=== PATIENT | female | born 1945 | race Caucasian/White ===

== ENCOUNTER 2016-11-20 14:22 | Day surgery (SDC) | payer MEDICARE, OTHER ==
[2016-11-16 13:42] LABS: HEMOGLOBIN 16.7 g/dL (12.0-15.5); HGB HCT DIFFERENCE 0.1; MEAN CORPUSCULAR HEMOGLOBIN 31.9 pg (27.0-33.4); MEAN CORPUSCULAR HGB CONC 33.5 g/dL (32.0-36.0); MEAN CORPUSCULAR VOLUME 95 fl (80-97); RED BLOOD COUNT 5.24 10^6/uL (3.72-5.28); RED CELL DISTRIBUTION WIDTH 14.3 % (11.5-14.0); WHITE BLOOD COUNT 5.2 10^3/uL (4.0-10.5)
[2016-11-16 13:52] LABS: ANION GAP 12 (5-19); BLOOD UREA NITROGEN 16 mg/dL (7-20); CALCIUM 10.3 mg/dL (8.4-10.2); CARBON DIOXIDE 30 mmol/L (22-30); CHLORIDE 104 mmol/L (98-107); CREATININE RESULT 1.04 mg/dL (0.52-1.25); GLUCOSE 81 mg/dL (75-110); POTASSIUM 4.7 mmol/L (3.6-5.0); SODIUM 145.7 mmol/L (137-145)
--- NOTE | 2016-11-17 17:41 | EKG REPORT ---
SEVERITY:- ABNORMAL ECG - SINUS RHYTHM LEFT VENTRICULAR HYPERTROPHY : Confirmed by: Janice Ashley MD 17-Nov-2016 17:40:25
[~2016-11-20 14:22] MED LIST: LACTATED RINGERS 1000 ML IV PRN; LIDOCAINE 0.5% INJ-PF (5 MG/ML) 50 ML SDV SUBCUT PRN; LIDOCAINE 2% INJ-PF (20 MG/ML) 10 ML AMPUL ONE
[2016-11-20] MEDS ORDERED: PROPOFOL INJ 200 MG/20 ML VIAL IV ONE (15:06)
[2016-11-20] MEDS ORDERED: MIDAZOLAM 2 MG/2 ML INJ ONE (15:07)
[2016-11-20] MEDS ORDERED: FENTANYL CITRATE INJ/PF 100 MCG/2 ML AMPUL IV PRN ×3 (16:15)
[2016-11-20] MEDS ORDERED: PROMETHAZINE HCL INJ 25 MG/1 ML VIAL IV PRN ×2 (16:15)
[2016-11-20] MEDS ORDERED: MEPERIDINE HCL/PF INJ 25 MG/1 ML DISP.SYRIN IV PRN (16:15)
[2016-11-20] MEDS ORDERED: ONDANSETRON HCL INJ/PF 4 MG/2 ML SDV IV PRN (16:15)
[2016-11-20] MEDS ORDERED: MORPHINE SULFATE 10 MG/ML INJ IV PRN (16:15)
[2016-11-20] MEDS ORDERED: DIPHENHYDRAMINE HCL 50 MG/ML VIAL IV PRN (16:15)
[2016-11-20] MEDS ORDERED: OXYCODONE-ACETAMINOPHEN 5-325 MG TABLET PO PRN ×2 (16:15)
--- NOTE | 2016-11-20 17:38 | OPERATIVE REPORT E ---
Operative Report NAME: PHILIP XAVIER : 1945 AGE: 71Y DATE OF SURGERY: 11/20/2016 ROOM: PREOPERATIVE DIAGNOSES: 1. History of colon carcinoma in situ. 2. Reflux disease. POSTOPERATIVE DIAGNOSES: 1. Small gastric fundi varix. 2. Anastomotic and descending colon polyp. 3. Internal hemorrhoids. SURGERY: 1. Esophagogastroduodenoscopy with biopsy. 2. Colonoscopy with polypectomy. SURGEON: ELISE YARBROUGH M.D. MEDICATION: As per Anesthesia. TISSUE REMOVED OR ALTERED: Antral biopsy and colon polyps. PROCEDURE: After informed consent obtained from patient, conscious sedation was achieved. The upper endoscope was inserted into the esophagus and advanced into the stomach. The duodenum was normal. The gastric antrum and body were normal. There was a short gastric varix noted in the gastric cardia. There was no evidence of bleeding. The esophagus was normal. The colonoscope was inserted and advanced to the anastomotic site situated in the mid to distal transverse colon. There was a 3 mm polyp noted at the anastomotic site, and this was removed with the hot snare. Another 4 mm polyp was noted in the tattooed area in the proximal descending colon. This was also removed. The rest of the colon was normal except for hemorrhoids. She tolerated the procedure well. PLAN: We will review her previous ultrasound and CAT scan to evaluate the liver and spleen. DICTATING PHYSICIAN: ELISE YARBROUGH M.D. [id number] PHY#: [id number] ID: [id number] JOB#: [id number] ACCT: [id number] cc:ELISE YARBROUGH M.D. >
[2016-11-20 18:25] VITALS: BP 155/65
--- NOTE | 2016-11-20 18:37 | PDOC DISCHARGE SUMMARY ---
Discharge Summary (SDC) - Discharge Final Diagnosis: colon polyp, gastric varix Condition: Stable Forms: ASU Anesthesia D/C Instruction, Discharge POC-Surgical Service Referrals: ELISE YARBROUGH MD [ACTIVE STAFF] - 12/21/16 (Keep previously scheduled follow up appointment.) Discharge Diet: As Tolerated Respiratory Treatments at Home: Deep Breathing/Coughing Discharge Activity: Activity As Tolerated, Balance Activity w/Rest, No Driving Home Care Assistance: None Needed Report the Following to Your Physician Immediately: Shortness of Breath, Nausea , Vomiting, Increase in Pain, Fever over 101 Degrees, Unusual Bleeding, IV Site Infection Signs
== END 2016-11-20 18:35 | disposition home or self-care (01) ==
LOC: OROUT 14:22
PROVIDERS: ATTEND Internal Medicine Gastroenterology
PROC: 0DB68ZX Excision of Stomach, Via Natural or Artificial Opening Endoscopic, Diagnostic (ICD-10-PCS; principal; 2016-11-20 15:30)
PROC: 0DBM8ZX Excision of Descending Colon, Via Natural or Artificial Opening Endoscopic, Diagnostic (ICD-10-PCS; 2016-11-20 15:30)
DX: Z12.11 Encounter for screening for malignant neoplasm of colon (principal); Z85.038 Personal history of other malignant neoplasm of large intestine; Z86.010 Personal history of colon polyps; D12.4 Benign neoplasm of descending colon; I86.4 Gastric varices; K64.8 Other hemorrhoids; R12 Heartburn; K31.9 Disease of stomach and duodenum, unspecified; K52.9 Noninfective gastroenteritis and colitis, unspecified; E78.00 Pure hypercholesterolemia, unspecified; I10 Essential (primary) hypertension; Z79.82 Long term (current) use of aspirin; Z79.899 Other long term (current) drug therapy
CPT/HCPCS: 43239; 45385; 93005; 36415 ×2; 84132; 85027; 80048; 88342 ×2; 88305 ×2; 93010; J2250; J2704; J3490; 740

== ENCOUNTER 2016-11-27 03:52 | Observation (INO) | payer MEDICARE, OTHER ==
[2016-11-27] MEDS ORDERED: NORMAL SALINE 1000 ML 1,000 ML IV ONE (04:38)
--- NOTE | 2016-11-27 04:41 | ER Document Report ---
ED GI Bleed / Rectal Pain - General Information source: Patient, Relative - daughter TRAVEL OUTSIDE OF THE [place] IN LAST 30 DAYS: No - HPI Patient complains to provider of: Bright red bld from rect. Onset: This morning - 0200 Timing/Duration: Sudden, Persistent Quality of pain: Cramping Emesis description: Bright red blood Rectal bleeding: Bloody diarrhea <ELIAN ORNELAS - Last Filed: 11/27/16 05:45> <MARIANO KINGSLEY - Last Filed: 11/27/16 06:09> - General Chief Complaint: Rectal Bleeding Stated Complaint: RECTAL BLEEDING/NAUSEA Time Seen by Provider: 11/27/16 04:28 Notes: Patient is a 71-year-old female, with past medical history including colon cancer and right hemicolectomy, who presents to the emergency department this morning after waking up to bloody diarrhea at approximately 0200 this morning. Patient describes the blood as bright red. Patient also complains of abdominal cramping. Patient's daughter reports that the patient had a colonoscopy with polyp removal at the anastomosis as well as above the anastomosis seven days ago. Patient's primary care is managed by the [facility]. (ELIAN ORNELAS) - Related Data Allergies/Adverse Reactions: Penicillins Allergy (Severe, Verified 11/20/16 14:55) Angioneurotic Edema Past Medical History - General Information source: Patient, [facility], [facility] Records - Social History Smoking Status: Unknown if Ever Smoked Family History: Reviewed & Not Pertinent Patient has suicidal ideation: No Patient has homicidal ideation: No - Medical History Medical History: Other - Polycythemia - Past Medical History Cardiac Medical History: Reports: Hx Coronary Artery Disease, Hx Heart Attack, Hx Hypertension GI Medical History: Reports: Hx Colonoscopy Musculoskeltal Medical History: Reports Hx Arthritis Past Surgical History: Reports: Hx Bowel Surgery - Hemicolectomy, Hx Cardiac Surgery - Triple Bypass, Hx Cholecystectomy, Other - Right mastoidectomy, right craniotomy - Immunizations Hx Diphtheria, Pertussis, Tetanus Vaccination: Yes Hx Pneumococcal Vaccination: 03/31/16 <ELIAN ORNELAS - Last Filed: 11/27/16 05:45> Review of Systems - Review of Systems Constitutional: No symptoms reported EENT: No symptoms reported Cardiovascular: No symptoms reported Respiratory: No symptoms reported Gastrointestinal: See HPI, Abdominal pain - cramping, Diarrhea, Rectal bleeding Genitourinary: No symptoms reported Female Genitourinary: No symptoms reported Musculoskeletal: No symptoms reported Skin: No symptoms reported Hematologic/Lymphatic: No symptoms reported Neurological/Psychological: No symptoms reported -: Yes All other systems reviewed and negative <ELIAN ORNELAS - Last Filed: 11/27/16 05:45> Physical Exam - Vital signs Interpretation: Hypotensive - General General appearance: Alert - HEENT Head: Normocephalic, Atraumatic Eyes: Normal Pupils: PERRL - Respiratory Respiratory status: No respiratory distress Chest status: Nontender Breath sounds: Normal - Cardiovascular Rhythm: Regular - Abdominal Inspection: Normal Distension: No distension Bowel sounds: Normal Tenderness: Nontender - Rectal Tenderness: No Stool: Heme positive, Bloody Hemorrhoids: Internal - Back Back: Normal, Nontender - Extremities General upper extremity: Normal inspection, Nontender General lower extremity: Normal inspection, Nontender - Neurological Neuro grossly intact: Yes Cognition: Normal Orientation: AAOx4 [place] Coma Scale Eye Opening: Spontaneous [place] Coma Scale Verbal: Oriented [place] Coma Scale Motor: Obeys Commands [place] Coma Scale Total: 15 Speech: Normal - Psychological Associated symptoms: Normal affect, Normal mood - Skin Skin Temperature: Warm Skin Moisture: Dry Skin Color: Normal <ELIAN ORNELAS - Last Filed: 11/27/16 05:45> <MARIANO KINGSLEY - Last Filed: 11/27/16 06:09> - Vital signs Vitals: Temp Pulse Resp BP Pulse Ox 97.4 F 94 16 95/64 L 96 11/27/16 04:02 11/27/16 04:02 11/27/16 04:02 11/27/16 04:02 11/27/16 04:02 - Rectal Notes: Hemorrhoids that are not bleeding. There was no clotting maroon colored blood pouring out of her anus. (ELIAN ORNELAS) Course - Laboratory Result Diagrams: 11/27/16 04:50 11/27/16 04:50 <ELIAN ORNELAS - Last Filed: 11/27/16 05:45> - Laboratory Result Diagrams: 11/27/16 04:50 11/27/16 04:50 - Diagnostic Test Radiology reviewed: Image reviewed, Reports reviewed - CT scan does not show any free air or any other acute abnormality - EKG Interpretation by Nj EKG shows normal: Sinus rhythm, [place], Intervals, QRS Complexes, ST-T Waves Rate: Normal - 76 Rhythm: NSR Voltage: Consistant with LVH When compared to previous EKG there are: No significant change - Consults Dr. Templeton Time consulted: 05:30 Consulted provider: will come to ER - Dr. Templeton requests to have the patient admitted to the hospitalist service and he will take to endoscopy for colonoscopy this morning. Dr. Barron Time consulted: 06:00 Consulted provider: will come to ER <MARIANO KINGSLEY - Last Filed: 11/27/16 06:09> - Re-evaluation Re-evalutation: 11/27/16 05:50 Patient's initial hemoglobin was 14.8, however she has a history of polycythemia and her hemoglobin was 16.7 only 11 days ago. (MARIANO KINGSLEY) - Vital Signs Vital signs: Temp Pulse Resp BP Pulse Ox 97.4 F 94 20 114/62 97 11/27/16 04:02 11/27/16 04:02 11/27/16 05:16 11/27/16 05:16 11/27/16 05:16 - Laboratory Laboratory results interpreted by me: 11/27/16 11/27/16 04:50 04:50 RDW 14.5 H Sodium 146.2 H Chloride 110 H BUN 24 H Est GFR ( Amer) 55 L Est GFR (Non-Af Amer) 45 L Glucose 123 H Creatine Kinase 164 H Total Protein 6.1 L Albumin 3.2 L Discharge <ELIAN ORNELAS - Last Filed: 11/27/16 05:45> - Discharge Admitting Provider: Hospitalist Unit Admitted: IMCU <MARIANO KINGSLEY - Last Filed: 11/27/16 06:09> - Discharge Clinical Impression: Polycythemia GI bleeding Qualifiers: GI bleed type/associated pathology: melena Qualified Code(s): K92.1 - Melena Hypotension Qualifiers: Hypotension type: other hypotension type Qualified Code(s): I95.89 - Other hypotension Condition: Stable Disposition: ADMITTED INPATIENT Scribe Attestation: 11/27/16 06:09 I personally performed the services described in the documentation, reviewed and edited the documentation which was dictated to the scribe in my presence, and it accurately records my words and actions. (MARIANO KINGSLEY) Scribe Documentation - Scribe Written by Francis:: Francis Borrego, 11/27/2016 0437 acting as scribe for :: Edi <ELIAN ORNELAS - Last Filed: 11/27/16 05:45>
[2016-11-27 05:18] LABS: ABSOLUTE BASOPHILS # (AUTO) 0.1 10^3/uL (0.0-0.2); ABSOLUTE EOSINOPHILS # (AUTO) 0.2 10^3/uL (0.0-0.6); ABSOLUTE MONOCYTES (AUTO) 0.6 10^3/uL (0.1-1.4); BASOPHILS % (AUTO) 1.4 % (0-2); HEMATOCRIT 43.7 % (36.0-47.0); HEMOGLOBIN 14.8 g/dL (12.0-15.5); HGB HCT DIFFERENCE 0.7; LYMPHOCYTES % (AUTO) 28.7 % (13-45); MEAN CORPUSCULAR HEMOGLOBIN 32.7 pg (27.0-33.4); MEAN CORPUSCULAR HGB CONC 33.8 g/dL (32.0-36.0); MEAN CORPUSCULAR VOLUME 97 fl (80-97); RED BLOOD COUNT 4.51 10^6/uL (3.72-5.28); RED CELL DISTRIBUTION WIDTH 14.5 % (11.5-14.0); SEGMENTED NEUTROPHILS % (AUTO) 57.9 % (42-78)
[2016-11-27 05:26] LABS: PROTHROMBIN TIME 14.4 SEC (11.4-15.4)
[2016-11-27 05:36] LABS: ALANINE AMINOTRANSFERASE 47 U/L (9-52); ALBUMIN 3.2 g/dL (3.5-5.0); ALKALINE PHOSPHATASE 103 U/L (38-126); ANION GAP 10 (5-19); ASPARTATE AMINO TRANSFERASE 34 U/L (14-36); BILIRUBIN,DIRECT 0.4 mg/dL (0.0-0.4); BILIRUBIN,TOTAL 0.6 mg/dL (0.2-1.3); BLOOD UREA NITROGEN 24 mg/dL (7-20); CALCIUM 9.6 mg/dL (8.4-10.2); CARBON DIOXIDE 26 mmol/L (22-30); CHLORIDE 110 mmol/L (98-107); CREATINE KINASE 164 U/L (30-135); CREATININE RESULT 1.17 mg/dL (0.52-1.25); GLUCOSE 123 mg/dL (75-110); POTASSIUM 4.8 mmol/L (3.6-5.0); SODIUM 146.2 mmol/L (137-145); TOTAL PROTEIN 6.1 g/dL (6.3-8.2)
[2016-11-27 05:46] LABS: CREATINE KINASE MB 1.65 ng/mL (<4.55)
[2016-11-27 05:50] LABS: TROPONIN I < 0.012 ng/mL
[2016-11-27] MEDS ORDERED: NALOXONE HCL INJ/PF 0.4 MG/1 ML SDV ONE (05:50)
[2016-11-27] MEDS ORDERED: MIDAZOLAM 2 MG/2 ML INJ ONE (05:51)
[2016-11-27] MEDS ORDERED: FENTANYL CITRATE INJ/PF 100 MCG/2 ML AMPUL ONE (05:51)
[2016-11-27] MEDS ORDERED: FLUMAZENIL INJ 0.5 MG/5 ML VIAL IV ONE (05:51)
[2016-11-27] MEDS ORDERED: GLUCAGON,HUMAN RECOMB 1 MG INJ ONE (05:51)
[2016-11-27] MEDS ORDERED: EPINEPHRINE INJ 1 MG/10 ML DISP.SYRIN ONE (05:51)
--- NOTE | 2016-11-27 06:15 | RADIOLOGY REPORT (SQ) ---
EXAM DESCRIPTION: CT ABD/PELVIS NO ORAL OR IV COMPLETED DATE/TIME: 11/27/2016 5:59 am REASON FOR STUDY: bloody diarrhea, abd pain post polypectomy COMPARISON: 7..12. TECHNIQUE: CT scan of the abdomen and pelvis performed without intravenous or oral contrast. Images reviewed with lung, soft tissue, and bone windows. Reconstructed coronal and sagittal MPR images revi ewed. All images stored on PACS. All CT scanners at this facility use dose modulation, iterative reconstruction, and/or weight based d osing when appropriate to reduce radiation dose to as low as reasonably achievable (ALARA). [facility]: Dose Right [facility]: CareDose [facility]: Dose Right [facility]: Teradose 4D [facility]: WizIQ RADIATION DOSE: 17.13mGy. LIMITATIONS: None. FINDINGS: LOWER CHEST: No significant findings. No nodules or infiltrates. Coronary arterial calcif ication. Sternotomy. NON-CONTRASTED LIVER, SPLEEN, ADRENALS: Moderate nodular contour or of the liver surface may indicate cirrhosis. Old granulomatous disease of the spleen. Evaluation limited by lack of IV contrast. No identified significant masses. PANCREAS: No masses. No peripancreatic inflammatory changes. GALLBLADDER: Surgically absent. RIGHT KIDNEY AND URETER: No suspicious masses. Assessment limited by lack of IV contrast. No signif icant calcifications. No hydronephrosis or hydroureter. LEFT KIDNEY AND URETER: No suspicious masses. Assessment limited by lack of IV contrast. No signifi cant calcifications. No hydronephrosis or hydroureter. 4.7 cm likely benign cysts without suspicio us interval change compared with prior exam, December 2011. AORTA AND RETROPERITONEUM: No aneurysm. No retroperitoneal masses or adenopathy. BOWEL AND PERITONEAL CAVITY: No obvious masses or inflammatory changes. No free fluid. Suture materi al of the transverse colon. APPENDIX: No evidence of appendicitis. PELVIS, BLADDER, AND ABDOMINAL WALL:No abnormal masses. No free fluid. Bladder normal. Small fat onl y herniation of the supraumbilical midline an upper midline at the level of the liver. BONES: Moderate disc desiccation. Moderate lower thoracic diffuse idiopathic skeletal hyperostosis. Moderate vacuum disc desiccation between the L3 and L5 levels. [id number]-[id number] bilateral L5 forami nal stenosis. OTHER: No other significant finding. IMPRESSION: No acute findings. TECHNICAL DOCUMENTATION: JOB ID: [id number] Quality ID # [id number]: Final reports with documentation of one or more dose reduction techniques (e.g., Au tomated exposure control, adjustment of the mA and/or kV according to patient size, use of iterative reconstruction technique) 2010 [employer]- All Rights Reserved
[2016-11-27] MEDS ORDERED: IPRATROPIUM/ALBUTEROL 0.5-2.5 MG/3 ML AMPUL NEB PRN (06:34)
[2016-11-27] MEDS ORDERED: ONDANSETRON HCL INJ/PF 4 MG/2 ML SDV IV PRN (06:34)
[2016-11-27] MEDS ORDERED: DEXTROSE 40% GEL 15 GM TUBE PO PRN ×2 (06:34)
[2016-11-27] MEDS ORDERED: DEXTROSE 50%-WATER 25 GM/50 ML DISP.SYRIN IV PRN ×2 (06:34)
[2016-11-27] MEDS ORDERED: GLUCAGON,HUMAN RECOMB 1 MG INJ SUBCUT PRN (06:34)
[2016-11-27] MEDS ORDERED: NORMAL SALINE 1000 ML 1,000 ML IV SCH (06:45)
[2016-11-27 07:17] LABS: ABSOLUTE BASOPHILS # (AUTO) 0.1 10^3/uL (0.0-0.2); ABSOLUTE EOSINOPHILS # (AUTO) 0.1 10^3/uL (0.0-0.6); ABSOLUTE LYMPHOCYTES (AUTO) 1.3 10^3/uL (0.5-4.7); ABSOLUTE MONOCYTES (AUTO) 0.6 10^3/uL (0.1-1.4); ABSOLUTE NEUT (AUTO) 5.2 10^3/uL (1.7-8.2); BASOPHILS % (AUTO) 0.8 % (0-2); EOSINOPHILS % (AUTO) 1.4 % (0-6); HEMATOCRIT 37.3 % (36.0-47.0); HGB HCT DIFFERENCE 0.5; LYMPHOCYTES % (AUTO) 18.3 % (13-45); MEAN CORPUSCULAR HEMOGLOBIN 32.7 pg (27.0-33.4); MEAN CORPUSCULAR HGB CONC 33.9 g/dL (32.0-36.0); MEAN CORPUSCULAR VOLUME 97 fl (80-97); MONOCYTES % (AUTO) 7.9 % (3-13); RED BLOOD COUNT 3.86 10^6/uL (3.72-5.28); SEGMENTED NEUTROPHILS % (AUTO) 71.6 % (42-78); WHITE BLOOD COUNT 7.2 10^3/uL (4.0-10.5)
--- NOTE | 2016-11-27 07:19 | PDOC H&P ---
History of Present Illness Admission Date/PCP: 11/27/16 06:34 Patient complains of: Blood per rectum History of Present Illness: PHILIP XAVIER is a 71 year old female with a past medical history of hereditary angioedema, coronary artery disease, polycythemia, remote colon cancer with hemicolectomy and reanastomosis. 7 days ago had endoscopy and several polyps removed from the anastomosis site, last night patient had several large bloody bowel movements prompting her ER evaluation. She is found to have a significant drop in her hemoglobin from 16.7-14.8, and unremarkable CT of the abdomen and pelvis and referred to the hospitalist for admission. Patient denies previous episode and otherwise feels well. Past Medical History Cardiac Medical History: Reports: Coronary Artery Disease, Myocardial Infarction , Hypertension Pulmonary Medical History: Denies: Asthma, Bronchitis, Chronic Obstructive Pulmonary Disease (COPD), Pneumonia Neurological Medical History: Denies: Seizures Musculoskeltal Medical History: Reports: Arthritis Hematology: Denies: Anemia Past Surgical History Past Surgical History: Reports: Cholecystectomy, Other - Right mastoidectomy, right craniotomy Social History Information Source: Patient, Emergency Med Personnel, [facility] Records Lives with: Family Smoking Status: Unknown if Ever Smoked Drugs: None - Advance Directive Resuscitation Status: Full Code Family History Family History: Reviewed & Not Pertinent Parental Family History Reviewed: No Children Family History Reviewed: No Sibling(s) Family History Reviewed.: No Medication/Allergy Allergies/Adverse Reactions: Penicillins Allergy (Severe, Verified 11/20/16 14:55) Angioneurotic Edema Review of Systems Constitutional: ABSENT: chills, fever(s), headache(s), weight gain, weight loss Eyes: ABSENT: visual disturbances Ears: ABSENT: hearing changes Cardiovascular: ABSENT: chest pain, dyspnea on exertion, edema, orthropnea, palpitations Respiratory: ABSENT: cough, hemoptysis Gastrointestinal: ABSENT: abdominal pain, constipation, diarrhea, hematemesis, hematochezia, nausea, vomiting Genitourinary: ABSENT: dysuria, hematuria Musculoskeletal: ABSENT: joint swelling Integumentary: ABSENT: rash, wounds Neurological: ABSENT: abnormal gait, abnormal speech, confusion, dizziness, focal weakness, syncope Psychiatric: ABSENT: anxiety, depression, homidical ideation, suicidal ideation Endocrine: ABSENT: cold intolerance, heat intolerance, polydipsia, polyuria Hematologic/Lymphatic: ABSENT: easy bleeding, easy bruising Physical Exam Vital Signs: Temp Pulse Resp BP Pulse Ox 97.4 F 94 21 H 114/65 99 11/27/16 04:02 11/27/16 04:02 11/27/16 06:48 11/27/16 06:48 11/27/16 06:48 General appearance: PRESENT: no acute distress, well-developed, well-nourished Head exam: PRESENT: atraumatic, normocephalic Eye exam: PRESENT: conjunctiva pink, EOMI, PERRLA. ABSENT: scleral icterus Ear exam: PRESENT: normal external ear exam Mouth exam: PRESENT: moist, tongue midline Neck exam: ABSENT: carotid bruit, JVD, lymphadenopathy, thyromegaly Respiratory exam: PRESENT: clear to auscultation nikita. ABSENT: rales, rhonchi, wheezes Cardiovascular exam: PRESENT: RRR. ABSENT: diastolic murmur, rubs, systolic murmur Pulses: PRESENT: normal dorsalis pedis pul Vascular exam: PRESENT: normal capillary refill GI/Abdominal exam: PRESENT: normal bowel sounds, soft, tenderness - Mild left lower quadrant pain. ABSENT: distended, guarding, mass, organolmegaly, rebound Rectal exam: PRESENT: deferred Extremities exam: PRESENT: full ROM. ABSENT: calf tenderness, clubbing, pedal edema Neurological exam: PRESENT: alert, awake, oriented to person, oriented to place , oriented to time, oriented to situation, CN II-XII grossly intact. ABSENT: motor sensory deficit Psychiatric exam: PRESENT: appropriate affect, normal mood. ABSENT: homicidal ideation, suicidal ideation Skin exam: PRESENT: dry, intact, warm. ABSENT: cyanosis, rash Results Impressions: Abdomen/Pelvis CT 11/27/16 05:39 IMPRESSION: No acute findings. Assessment & Plan - Diagnosis (1) GI bleeding Qualifiers: GI bleed type/associated pathology: melena Qualified Code(s): K92.1 - Melena Is this a current diagnosis for this admission?: YesPlan: New problem likely secondary to bleeding at polypectomy site. Admission to the [facility], 2 units of packed red blood cells are typed and screened, serial CBC and gastroenterology consultation with Dr. Templeton obtained for colonoscopy. (2) Hypotension Qualifiers: Hypotension type: other hypotension type Qualified Code(s): I95.89 - Other hypotension Is this a current diagnosis for this admission?: YesPlan: IV fluid challenge reevaluation and consideration of pressors (3) Polycythemia Is this a current diagnosis for this admission?: YesPlan: Patient's baseline hemoglobin of 16 serial CBCs ordered (4) Hereditary angioedema Is this a current diagnosis for this admission?: YesPlan: Continue danazol - Time Time Spent: 30 to 50 Minutes - Inpatient Certification Medical Necessity: Need Close Monitoring Due to Risk of Patient Decompensation
--- NOTE | 2016-11-27 07:28 | CONSULTATION REPORT E ---
Consultation Report NAME: PHILIP XAVIER : 1945 AGE: 71Y DATE: 11/27/2016 ED70 A TO: ELISE YARBROUGH M.D. FROM: JEFF GUERRA M.D. Requesting Physician Consultation requested by hospitalist. HISTORY: A 71-year-old patient who was admitted through the emergency room with acute lower GI bleeding. She started bleeding about 3-4 hours prior to presentation. She has had 4-5 episodes so far of bright red blood per rectum. She does get some abdominal cramps prior to a bowel movement. She had a colonoscopy on 11/20/2016 where two small polyps were removed from the anastomotic sites and proximal descending colon. The polyps were 3 and 4 mm in size, but they were removed with the hot snare. She has resumed taking her baby aspirin, but has not been taking any other NSAIDs. On admission, her hemoglobin was 14.8. It was 16.7 on 11/16/2016. She has a history of polycythemia vera. Her INR was normal. PAST MEDICAL HISTORY: 1. Right-sided colon cancer about 12 years ago. 2. Hypercholesterolemia. 3. Hypertension. 4. Coronary artery disease. 5. Reflux disease. 6. Angioedema. 7. Polycythemia. PAST SURGICAL HISTORY: 1. Recent colonoscopy and also in 2012. 2. Right hemicolectomy. 3. Mastectomy. 4. Coronary artery bypass. 5. Cholecystectomy. 6. Craniotomy. 7. Knee surgery. ALLERGIES: PENICILLIN. SOCIAL HISTORY: Noncontributory. REVIEW OF SYSTEMS: Other than the above, this is noncontributory. PHYSICAL EXAMINATION: GENERAL: A lady in no distress. VITAL SIGNS: She has a blood pressure of 119/64. She had a systolic of 95 upon presentation to the ER. Heart rate has been in the 70s. HEENT: No pallor. No jaundice. Oropharynx normal. NECK: No bruit. No JVD. CHEST: Has kyphosis. LUNGS: Clear. HEART: S1 and S2 normal without murmurs. ABDOMEN: Soft and nontender. Liver and spleen not palpable. Bowel sounds normal. NEUROLOGIC: Grossly nonfocal. LABORATORY TESTS: BUN of 24 with creatinine of 1.17, sodium of 146. ASSESSMENT AND PLAN: GI bleeding. She likely bleeding from one of her polypectomy sites. The polyps were small, but they could still bleed. She will be undergoing an urgent colonoscopy without any bowel prep. Her H and H will be followed. DICTATING PHYSICIAN: ELISE YARBROUGH M.D. [id number] PHY#: [id number] ID: [id number] JOB#: [id number] ACCT: [id number] cc:ELISE YARBROUGH M.D. >
[2016-11-27 07:31] LABS: HEMOGLOBIN 12.6 g/dL (12.0-15.5)
--- NOTE | 2016-11-27 07:38 | OPERATIVE REPORT E ---
Operative Report NAME: PHILIP XAVIER : 1945 AGE: 71Y DATE OF SURGERY: 11/27/2016 ROOM: ED70 PREOPERATIVE DIAGNOSIS: Rectal bleeding. POSTOPERATIVE DIAGNOSES: 1. Anastomotic post polypectomy ulcer with clot. 2. Proximal descending colon post polypectomy ulcer with no evidence for recent bleeding. SURGERY: Colonoscopy with bleeding, controlled with Endoclips. SURGEON: ELISE YARBROUGH M.D. MEDICATIONS: Versed 2 mg, fentanyl 50 mcg. TISSUE REMOVED OR ALTERED: None. PROCEDURE: After informed consent obtained from patient, conscious sedation was achieved. The colonoscope was inserted into the rectum and advanced to the anastomotic site, which is situated in the distal transverse colon. There was altered blood noted all over the colon, but no active bleeding spot identified. An ulcer was noted around the anastomotic site and this had a fresh clot on it. The ulcer was about 5-6 mm. The edges of the ulcer was then closed using 3 Endoclips. There was no bleeding at the end of the procedure. The second polypectomy ulcer was noted in the proximal descending colon with a wide base. There was no evidence for recent bleeding. The rest of the colon was unremarkable, though view was limited for small polyps. She tolerated the procedure well. PLAN: Continue to follow H and H. Will hold aspirin for the next 10-14 days. DICTATING PHYSICIAN: ELISE YARBROUGH M.D. [id number] PHY#: [id number] ID: [id number] JOB#: [id number] ACCT: [id number] cc:[facility], ELISE YARBROUGH M.D. >
[2016-11-27] MEDS ORDERED: LANSOPRAZOLE 15 MG TAB.RAP.DR PO ONE (09:00)
--- NOTE | 2016-11-27 09:33 | PROGRESS NOTE E ---
Progress Note NAME: PHILIP XAVIER : 1945 AGE: 71Y DATE: 11/27/2016 ROOM: 316 TIME SPENT MANAGING PATIENT: 35 minutes. SUBJECTIVE: Patient states that after colonoscopy this morning she has had lower abdominal discomfort and she has had one more bloody bowel movement. This is confirmed by nursing staff as well. The patient's colonoscopy reportedly had an anastomotic ulcer with a clot and no active bleeding at that time. This was performed by Dr. Templeton. OBJECTIVE: VITAL SIGNS: Temperature 97.9, blood pressure 98/51. GENERAL: Patient is alert and oriented, in no apparent distress, answers questions appropriately. HEENT: Sclera is nonicteric. Oropharynx has moist mucous membranes. NECK: No JVD. Midline trachea. RESPIRATORY: Clear to auscultation. No wheezes or rhonchi. CARDIAC: Regular rate and rhythm. No murmurs, gallops, or rubs. ABDOMEN: Mildly obese, soft. Mild lower abdominal tenderness. No rebound. No guarding. EXTREMITIES: No edema, cyanosis, clubbing. LABORATORIES: White blood count 7.2, hemoglobin 12.6. Sodium 146, potassium 4.8, chloride 111, bicarb 26, BUN 24, creatinine 1.17, glucose 123. ASSESSMENT AND PLAN: 1. ACUTE LOWER GASTROINTESTINAL BLEEDING. Patient will be admitted to the hospital, given active ongoing bleeding. We will need to check serial hemoglobin and hematocrit, and if patient should become too anemic, we may need to transfuse. Colonoscopy showed anastomotic ulcer in the colon from prior colon cancer surgery. Patient has been started on Asacol by Dr. Templeton of Gastroenterology. We will hold her aspirin. 2. HYPERTENSION. Hold blood pressure medicine due to low blood pressure at this time and acute blood loss. 3. HEREDITARY ANGIOEDEMA. 4. CORONARY ARTERY DISEASE. Thirty five minutes spent. DICTATING PHYSICIAN: CORIN HUSSEIN M.D. [id number] PHY#: [id number] ID: [id number] JOB#: [id number] ACCT: [id number] cc: >
--- NOTE | 2016-11-27 09:58 | EKG REPORT ---
SEVERITY:- ABNORMAL ECG - SINUS RHYTHM LVH BY VOLTAGE : Confirmed by: Shravan Kraft 27-Nov-2016 09:58:14
[2016-11-27] MEDS ORDERED: LOSARTAN POTASSIUM 50 MG TABLET PO SCH (10:00)
[2016-11-27] MEDS ORDERED: DANAZOL PO SCH (10:00)
[2016-11-27] MEDS ORDERED: (PENDING PHARMACY ID) (Pravastatin Sodium [Pravastatin Sodium] 40 MG) PO SCH (10:00)
[2016-11-27] MEDS ORDERED: (PENDING PHARMACY ID) (Telmisartan/Hydrochlorothiazid [Micardis Hct 40-12.5 Mg Tablet] 1 E PO SCH (10:00)
[2016-11-27] MEDS ORDERED: (PENDING PHARMACY ID) (Pantoprazole Sodium [Protonix] 20 MG) PO SCH (10:00)
[2016-11-27] MEDS: MESALAMINE 400 MG CAPSULE.DR PO SCH ×3 (10:51→17:20)
[2016-11-27] MEDS: ATORVASTATIN CALCIUM 10 MG TABLET PO SCH (10:52)
[2016-11-27] MEDS: MULTIVITAMIN TABLET PO SCH (10:53)
[2016-11-27] MEDS: PREGABALIN 75 MG CAPSULE PO SCH ×2 (10:53→22:23)
[2016-11-27] MEDS: FOLIC ACID 1 MG TABLET PO SCH (10:53)
--- NOTE | 2016-11-27 12:25 | Physician Advisory Note ---
Physician Advisor ProgressNote .: [facility], I have reviewed the medical record for this patient. Physician Advisor Statement: Possible documentation opportunities if attending agrees: 1. "Anemia of Acute Blood Loss" - once her H/H drops into the anemic range 2. "Medical Necessity" - This Medicare pt has not yet been in hospital for a single MN yet. Need to document explicitly (A) what makes her continue to be unstable, AND (B) why you expect her to have nearly no chance of stabilizing sufficiently for safe d/c later tomorrow ( feel free to use any bolded points below w/which you agree). - If you think there's any reasonable chance she could stabilize enough for d/c later tomorrow, she should be Obs until she proves she can't go tomorrow. 3. "Acute hypernatremia, likely due to intravascular volume depletion" As always, if concerned about any unstable VS or abnormal labs, please comment on them - what bad things they might indicate, why they concern you - & note what doing about them. Please also document each day the potential clinical problems you are concerned could occur if pt not kept in hospital for tx at this time. (These points are olivas - if present in each note, attending's status decision should be sufficiently supported.) Discussion: 71yo female w/ chronic co-morbidities including Rt colon CA in situ 12 yrs ago tx'd w/Rt hemicolectomy w/reanatomosis, w/subsequent multiple adenomatous polyps , polycythemia w/most recent Hgb 16.7 just 11 days prior to arrival, CAD w/3V CABG, HTN, HLD, GERD, hereditary angioedema, who underwent EGD & colonoscopy showing polyps & possible gastric varix (path = reactive gastropathy, anastomotic polyp, tubular adenoma) - - presented 5/30 AM to ED w/ bloody diarrhea starting appx 02:00. (+) HR 94 despite chronic Toprol XL tx, w/BP 95/64, RR16, WBC 7.0, Hgb down from prior 16.7 to 14.8, ED dr documented "there was nonclotting maroon colored blood pouring out of her anus". Na 146.2, K 4.8, BUN 24, Cr 1.17, glc 123, EKG = LVH, CT abd w/out acute changes. ED gave 1L IVF wide open. Attending ordered GI consult for colonoscopy which was done urgently, H/H q6h, T &Screen, NS @250 x 2L, falls precautions, I/Os, daily wts, O2 2L, f/u BMP in AM. Status: 71 yo Medicare pt w/underlying CAD & past colon CA, recently having polyps removed, developing acute, active LGIBleeding w/drop of 2 units Hgb already on arrival & still bleeding actively in ED, along with hypotension & tachycardia - - & Hgb has continued to drop another 2 units, to 12.6 just prior to colonoscopy. "Op note" at 08:05 by Marti Duarte documents 500ml bloody liquid in suction canister at 06:45. Found by urgent colonoscopy to have anastomotic ulcer w/clot but no active bleeding at the time, then more bleeding/abd discomfort has developed again since colonoscopy - This pt is at high risk for ongoing/recurrent active bleeding w/unstable VS, given brisk bleeding initially & recurrence of active bleeding since colonoscopy this AM - risk for hypovolemic shock already suggested by admitting attending who documented consideration of starting pressors. This pt is at high risk for developing acute cardiac ischemia from the hypovolemia/hypotension, as well as from reactive tachycardia. Attending has ordered O2 2L despite normal O2 sats so far, which indicates concern for adequate cardiac oxygenation/ischemia with unstable HR/BP. Pt remains relatively hypotensive at 98/51 w/HR 71. Attending has ordered resumption of her metoprolol, which may help protect heart from tachycardia-related ischemia but could also precipitate dangerous levels of hypotension in this pt with current hypotentions & continued risk of brisk volume losses from unstable ulcer clot. Spoke w/attending. He stopped IVF b/c pt will be starting clears po today. He is not necessarily going to restart her metoprolol tonight after all given her BPs. He is not certain whether pt will stabilize sufficiently by tomorrow for d/c home at that point, after 1MN, or whether pt will still be too unstable at that point & require a 2nd MN of hospital care & monitoring. Therefore, pt should be Outpt Obs until tomorrow, at which point pt should either go home or be appropriate for change to Inpt status with documentation of ongoing clinical concerns. Thanks for your help with documentation accuracy/specificity improvement! Celi Koroma MD [facility] Physician Advisor, Fellow of [facility] Medicine
[2016-11-27 13:32] LABS: ABSOLUTE BASOPHILS # (AUTO) 0.1 10^3/uL (0.0-0.2); ABSOLUTE EOSINOPHILS # (AUTO) 0.1 10^3/uL (0.0-0.6); ABSOLUTE LYMPHOCYTES (AUTO) 1.7 10^3/uL (0.5-4.7); ABSOLUTE MONOCYTES (AUTO) 0.6 10^3/uL (0.1-1.4); ABSOLUTE NEUT (AUTO) 4.5 10^3/uL (1.7-8.2); BASOPHILS % (AUTO) 0.7 % (0-2); EOSINOPHILS % (AUTO) 1.4 % (0-6); HEMATOCRIT 38.1 % (36.0-47.0); HEMOGLOBIN 12.6 g/dL (12.0-15.5); HGB HCT DIFFERENCE -0.3; LYMPHOCYTES % (AUTO) 24.6 % (13-45); MEAN CORPUSCULAR HEMOGLOBIN 31.7 pg (27.0-33.4); MEAN CORPUSCULAR VOLUME 96 fl (80-97); MONOCYTES % (AUTO) 8.6 % (3-13); RED BLOOD COUNT 3.97 10^6/uL (3.72-5.28); RED CELL DISTRIBUTION WIDTH 14.4 % (11.5-14.0); SEGMENTED NEUTROPHILS % (AUTO) 64.7 % (42-78); WHITE BLOOD COUNT 6.9 10^3/uL (4.0-10.5)
[2016-11-27] MEDS ORDERED: METOPROLOL SUCCINATE 50 MG TAB.SR.24H PO SCH (18:00)
[2016-11-27 18:40] LABS: ABSOLUTE EOSINOPHILS # (AUTO) 0.1 10^3/uL (0.0-0.6); ABSOLUTE LYMPHOCYTES (AUTO) 1.9 10^3/uL (0.5-4.7); ABSOLUTE MONOCYTES (AUTO) 0.5 10^3/uL (0.1-1.4); ABSOLUTE NEUT (AUTO) 5.3 10^3/uL (1.7-8.2); BASOPHILS % (AUTO) 0.6 % (0-2); EOSINOPHILS % (AUTO) 1.7 % (0-6); HEMATOCRIT 36.1 % (36.0-47.0); HGB HCT DIFFERENCE -0.1; MEAN CORPUSCULAR HEMOGLOBIN 31.9 pg (27.0-33.4); MEAN CORPUSCULAR HGB CONC 33.2 g/dL (32.0-36.0); MEAN CORPUSCULAR VOLUME 96 fl (80-97); MONOCYTES % (AUTO) 5.9 % (3-13); RED BLOOD COUNT 3.76 10^6/uL (3.72-5.28); RED CELL DISTRIBUTION WIDTH 14.3 % (11.5-14.0); SEGMENTED NEUTROPHILS % (AUTO) 67.8 % (42-78); WHITE BLOOD COUNT 7.8 10^3/uL (4.0-10.5)
[2016-11-28 00:37] LABS: ABSOLUTE BASOPHILS # (AUTO) 0.1 10^3/uL (0.0-0.2); ABSOLUTE EOSINOPHILS # (AUTO) 0.3 10^3/uL (0.0-0.6); ABSOLUTE LYMPHOCYTES (AUTO) 2.5 10^3/uL (0.5-4.7); ABSOLUTE MONOCYTES (AUTO) 0.7 10^3/uL (0.1-1.4); ABSOLUTE NEUT (AUTO) 4.9 10^3/uL (1.7-8.2); BASOPHILS % (AUTO) 0.9 % (0-2); HEMATOCRIT 33.8 % (36.0-47.0); HEMOGLOBIN 11.4 g/dL (12.0-15.5); HGB HCT DIFFERENCE 0.4; LYMPHOCYTES % (AUTO) 29.6 % (13-45); MEAN CORPUSCULAR HEMOGLOBIN 32.1 pg (27.0-33.4); MEAN CORPUSCULAR HGB CONC 33.7 g/dL (32.0-36.0); MEAN CORPUSCULAR VOLUME 95 fl (80-97); MONOCYTES % (AUTO) 8.5 % (3-13); RED BLOOD COUNT 3.54 10^6/uL (3.72-5.28); RED CELL DISTRIBUTION WIDTH 14.3 % (11.5-14.0); WHITE BLOOD COUNT 8.4 10^3/uL (4.0-10.5)
[2016-11-28 07:17] LABS: ABSOLUTE BASOPHILS # (AUTO) 0.1 10^3/uL (0.0-0.2); ABSOLUTE EOSINOPHILS # (AUTO) 0.2 10^3/uL (0.0-0.6); ABSOLUTE LYMPHOCYTES (AUTO) 2.3 10^3/uL (0.5-4.7); ABSOLUTE MONOCYTES (AUTO) 0.5 10^3/uL (0.1-1.4); ABSOLUTE NEUT (AUTO) 3.9 10^3/uL (1.7-8.2); BASOPHILS % (AUTO) 0.9 % (0-2); EOSINOPHILS % (AUTO) 3.5 % (0-6); HEMATOCRIT 35.9 % (36.0-47.0); HGB HCT DIFFERENCE 0.1; LYMPHOCYTES % (AUTO) 32.9 % (13-45); MEAN CORPUSCULAR HEMOGLOBIN 32.2 pg (27.0-33.4); MEAN CORPUSCULAR HGB CONC 33.4 g/dL (32.0-36.0); MEAN CORPUSCULAR VOLUME 96 fl (80-97); MONOCYTES % (AUTO) 7.2 % (3-13); RED BLOOD COUNT 3.72 10^6/uL (3.72-5.28); RED CELL DISTRIBUTION WIDTH 14.3 % (11.5-14.0); SEGMENTED NEUTROPHILS % (AUTO) 55.5 % (42-78); WHITE BLOOD COUNT 6.9 10^3/uL (4.0-10.5)
[2016-11-28 07:37] LABS: ANION GAP 5 (5-19); BLOOD UREA NITROGEN 20 mg/dL (7-20); CARBON DIOXIDE 27 mmol/L (22-30); CHLORIDE 109 mmol/L (98-107); CREATININE RESULT 0.99 mg/dL (0.52-1.25); GLUCOSE 77 mg/dL (75-110); SODIUM 140.5 mmol/L (137-145)
[2016-11-28] MEDS ORDERED: LANSOPRAZOLE 15 MG TAB.RAP.DR PO SCH (08:00)
[2016-11-28] MEDS: MULTIVITAMIN TABLET PO SCH (09:25)
[2016-11-28] MEDS: FOLIC ACID 1 MG TABLET PO SCH (09:25)
[2016-11-28] MEDS: ATORVASTATIN CALCIUM 10 MG TABLET PO SCH (09:26)
[2016-11-28] MEDS: PREGABALIN 75 MG CAPSULE PO SCH (09:26)
[2016-11-28] MEDS: MESALAMINE 400 MG CAPSULE.DR PO SCH ×2 (09:26→14:24)
[2016-11-28] MEDS ORDERED: DANAZOL PO SCH (10:00)
--- NOTE | 2016-11-28 10:05 | PDOC DISCHARGE SUMMARY ---
General - Admit/Disc Date/PCP Admission Date/Primary Care Provider: 11/27/16 06:34 Discharge Date: 11/28/16 - Discharge Diagnosis (1) GI bleeding Is this a current diagnosis for this admission?: Yes (2) Colonic ulcer Is this a current diagnosis for this admission?: Yes (3) CAD (coronary artery disease) Is this a current diagnosis for this admission?: Yes (4) Hereditary angioedema Is this a current diagnosis for this admission?: Yes (5) Hypotension Is this a current diagnosis for this admission?: Yes (6) Polycythemia Is this a current diagnosis for this admission?: Yes - Additional Information Resuscitation Status: Full Code Discharge Diet: Cardiac Discharge Activity: Activity As Tolerated Home Medications: Danazol 50 mg PO BID 11/27/16 Folic Acid [Folvite 1 mg Tablet] 1 mg PO DAILY 11/27/16 Metoprolol Succinate [Toprol Xl 50 mg Tab.sr] 50 mg PO QPM 11/27/16 Multivitamin [Daily Multiple Vitamin] 1 tab PO DAILY 11/27/16 Pantoprazole Sodium [Protonix] 20 mg PO DAILY 11/27/16 Pravastatin Sodium [Pravachol] 40 mg PO DAILY 11/27/16 Pregabalin [Lyrica 75 mg Capsule] 75 mg PO Q12 11/27/16 Telmisartan/Hydrochlorothiazid [Micardis HCT 40-12.5 mg Tablet] 1 tab PO DAILY 11/27/16 Mesalamine [Asacol Hd] 800 mg PO TID #90 tablet. 11/28/16 History of Present Illness Patient complains of: Rectal bleeding History of Present Illness: PHILIP XAVIER is a 71 year old female with a past medical history of hereditary angioedema, coronary artery disease, polycythemia, remote colon cancer with hemicolectomy and reanastomosis. 7 days ago had endoscopy and several polyps removed from the anastomosis site, last night patient had several large bloody bowel movements prompting her ER evaluation. She is found to have a significant drop in her hemoglobin from 16.7-14.8, and unremarkable CT of the abdomen and pelvis and referred to the hospitalist for admission. Patient denies previous episode and otherwise feels well. Hospital Course Hospital Course: Patient was admitted for large volume lower GI bleed. She underwent colonoscopy by Dr. Templeton which showed an anastomotic ulcer and prior colon cancer surgery site. Patient has had polypectomy recently. She was taken off aspirin. She was started on Asacol by Dr. Templeton. GI bleeding resolved spontaneously. Hemoglobin and hematocrit remained stable. Patient is discharged home in stable condition and will need to follow-up with primary care provider and Dr. Templeton. She is advised to discontinue aspirin until follow -up. Physical Exam Vital Signs: Temp Pulse Resp BP Pulse Ox 97.7 F 89 20 122/49 L 97 11/28/16 07:09 11/28/16 07:09 11/28/16 07:09 11/28/16 07:09 11/28/16 07:09 Intake & Output 11/27/16 11/28/16 11/29/16 06:59 06:59 06:59 Intake Total 400 0 Output Total 500 200 Balance -100 -200 Weight 79.6 kg GENERAL: No acute distress HEENT: Conjunctiva clear, nonicteric, moist mucous membranes, no JVD, midline trachea RESPIRATORY: Clear to auscultation bilaterally, no wheezes, no rhonchi CARDIAC: Regular rate and rhythm, no murmurs/gallops/rubs ABDOMEN: Soft, nondistended, nontender, positive bowel sounds, no rebound, no guarding EXTREMETIES: No edema, cyanosis, clubbing NEUROLOGIC: Alert, oriented to person/place/time, CN's grossly intact, no focal deficits SKIN: No rash, wounds PSYCH: Normal mood, normal affect Results Laboratory Results: 11/28/16 06:47 11/28/16 06:47 11/27/16 11/27/16 11/28/16 13:09 18:20 00:28 WBC 6.9 7.8 8.4 RBC 3.97 3.76 3.54 L Hgb 12.6 12.0 11.4 L Hct 38.1 36.1 33.8 L MCV 96 96 95 MCH 31.7 31.9 32.1 MCHC 33.0 33.2 33.7 RDW 14.4 H 14.3 H 14.3 H Plt Count 186 175 162 Seg Neutrophils % 64.7 67.8 58.0 Lymphocytes % 24.6 24.0 29.6 Monocytes % 8.6 5.9 8.5 Eosinophils % 1.4 1.7 3.0 Basophils % 0.7 0.6 0.9 Absolute Neutrophils 4.5 5.3 4.9 Absolute Lymphocytes 1.7 1.9 2.5 Absolute Monocytes 0.6 0.5 0.7 Absolute Eosinophils 0.1 0.1 0.3 Absolute Basophils 0.1 0.0 0.1 Sodium Potassium Chloride Carbon Dioxide Anion Gap BUN Creatinine Est GFR ( Amer) Est GFR (Non-Af Amer) Glucose Calcium 11/28/16 11/28/16 06:47 06:47 WBC 6.9 RBC 3.72 Hgb 12.0 Hct 35.9 L MCV 96 MCH 32.2 MCHC 33.4 RDW 14.3 H Plt Count 184 Seg Neutrophils % 55.5 Lymphocytes % 32.9 Monocytes % 7.2 Eosinophils % 3.5 Basophils % 0.9 Absolute Neutrophils 3.9 Absolute Lymphocytes 2.3 Absolute Monocytes 0.5 Absolute Eosinophils 0.2 Absolute Basophils 0.1 Sodium 140.5 Potassium 4.0 Chloride 109 H Carbon Dioxide 27 Anion Gap 5 BUN 20 Creatinine 0.99 Est GFR ( Amer) > 60 Est GFR (Non-Af Amer) 55 L Glucose 77 Calcium 9.0 Impressions: Abdomen/Pelvis CT 11/27/16 05:39 IMPRESSION: No acute findings. Qualifiers PATEINT BEING DISCHARGED WITH ANY OF THE FOLLOWING DIAGNOSIS?: No Plan Time Spent: Less than 30 Minutes
[2016-11-28 12:39] VITALS: BP 111/54
== END 2016-11-28 15:46 | disposition home or self-care (01) ==
LOC: ER 03:52 → EH 06:22 → UNDOADMIN 06:22 → EH 06:34 → INTOOBSV 06:34 → 3W 08:37
PROVIDERS: ADMIT Internal Medicine; ATTEND Internal Medicine
PROC: 0W3P8ZZ Control Bleeding in Gastrointestinal Tract, Via Natural or Artificial Opening Endoscopic (ICD-10-PCS; principal; 2016-11-27 06:00)
DX: K92.1 Melena (principal); K28.9 Gastrojejunal ulcer, unspecified as acute or chronic, without hemorrhage or perforation; I25.10 Atherosclerotic heart disease of native coronary artery without angina pectoris; D84.1 Defects in the complement system; I95.89 Other hypotension; D45 Polycythemia vera; K64.9 Unspecified hemorrhoids; I25.2 Old myocardial infarction; E66.9 Obesity, unspecified; I10 Essential (primary) hypertension; Z79.899 Other long term (current) drug therapy; Z90.49 Acquired absence of other specified parts of digestive tract; Z85.038 Personal history of other malignant neoplasm of large intestine; Z86.010 Personal history of colon polyps; Z95.1 Presence of aortocoronary bypass graft; Z90.10 Acquired absence of unspecified breast and nipple; Z79.82 Long term (current) use of aspirin; Z68.30 Body mass index [BMI] 30.0-30.9, adult
CPT/HCPCS: 93005; 99285; 45382; 86900; 86901; 36415 ×2; 82553; 86850; 82550; 85025 ×2; 85610; 80048; 80053; 84484; 74176; 93010; G0378 ×4; A9270 ×12; J2250; J0171; J3010; J7030; J1610; J2310; J3490

== ENCOUNTER → 2017-07-08 | Outpatient (CLI) | payer MEDICARE, OTHER ==
--- NOTE | 2017-07-08 14:39 | XCELERA REPORT ---
[address] [address] Lower Extremity Venous Evaluation Name: PHILIP XAVIER Age: 72 yrs Gender: Female : 1945 Patient Status: Outpatient Patient Location: Study Date: 07/08/2017 01:59 PM Procedure: Color flow and duplex imaging of the veins of the left lower extremity as well as the right Common Femoral vein. Reason For Study: LLE EDEMA Ordering Physician: YAMIL DE JESUS Performed By: Kelly Flowers Right Sided Venous Evaluation The right common femoral vein is fully compressible. Spontaneous and phasic flow is present in the right common femoral vein. Left Sided Venous Evaluation Normal vessel filling wall to wall, compression and augmentation as well as Colour flow down to the infrageniculate veins. Interpretation Summary No duplex evidence of DVT or obstruction in the left lower extremity nor in the right Common Femoral vein. : YAMIL DE JESUS > Kraig Taylor
== END ==
LOC: SP 13:42
PROVIDERS: ATTEND Internal Medicine Rheumatology
DX: R60.0 Localized edema (principal); M79.605 Pain in left leg; D84.1 Defects in the complement system; M15.0 Primary generalized (osteo)arthritis
CPT/HCPCS: 93971

== ENCOUNTER 2018-01-07 14:21 | Day surgery (SDC) | payer MEDICARE, OTHER ==
[2018-01-07] MEDS ORDERED: MIDAZOLAM 2 MG/2 ML INJ ONE (15:24)
[2018-01-07] MEDS ORDERED: PROPOFOL INJ 200 MG/20 ML VIAL IV ONE (15:24)
[2018-01-07] MEDS ORDERED: ONDANSETRON HCL INJ/PF 4 MG/2 ML SDV ONE (15:24)
[2018-01-07] MEDS ORDERED: LIDOCAINE 2% INJ-PF (20 MG/ML) 10 ML AMPUL ONE (15:24)
[2018-01-07] MEDS ORDERED: FENTANYL CITRATE INJ/PF 100 MCG/2 ML AMPUL ONE (15:25)
--- NOTE | 2018-01-07 18:34 | Operative Report ---
Operative Report DATE OF SURGERY: 01/07/18 Operative Report: Pre-op diagnosis: History of cirrhosis rule out esophageal varices Post-op diagnosis: 1. Short gastric cardia varix Surgery: Esophagogastroduodenoscopy with biopsy Medications: As per anesthesia Tissue removed: Antral and gastric body biopsy for pathology Procedure: After informed consent obtained from patient, the throat was sprayed with Hurricane and conscious sedation was achieved. The upper endoscope was inserted into the esophagus under direct vision and advanced into the stomach. The duodenum was entered and examined to the second part. Endoscope was then slowly pulled out of the patient as the mucosa was examined into details. Patient tolerated procedure well. Findings Esophagus: Normal. No varices were identified Antrum: Normal Body: Normal Fundus: A short moderate sized varix was identified in the gastric cardia Duodenum first part: Normal Duodenum second part: Normal Plan: Await pathology. Follow-up EGD in 2-3 years OPERATION: .
[2018-01-07] MEDS ORDERED: ACETAMINOPHEN 325 MG TABLET ONE (18:55)
[2018-01-07 20:04] VITALS: BP 150/80
== END 2018-01-07 19:55 | disposition home or self-care (01) ==
LOC: OROUT 14:21
PROVIDERS: ATTEND Internal Medicine Gastroenterology
PROC: 0DB68ZX Excision of Stomach, Via Natural or Artificial Opening Endoscopic, Diagnostic (ICD-10-PCS; principal; 2018-01-07 16:00)
DX: K74.69 Other cirrhosis of liver (principal); I86.4 Gastric varices; K21.9 Gastro-esophageal reflux disease without esophagitis; Z85.038 Personal history of other malignant neoplasm of large intestine; Z86.010 Personal history of colon polyps; I10 Essential (primary) hypertension; I25.2 Old myocardial infarction
CPT/HCPCS: 43239; 36415; 84132; 88305 ×2; A9270; J2250; J2405; J2704; 731; J3010; J3490

== ENCOUNTER → 2018-07-07 | Outpatient (CLI) | payer MEDICARE, OTHER ==
--- NOTE | 2018-07-07 14:15 | RADIOLOGY REPORT (SQ) ---
EXAM DESCRIPTION: CT ABDOMEN WITH IV ORAL CONT COMPLETED DATE/TIME: 07/07/2018 1:36 pm REASON FOR STUDY: K74.69 OTHER CIRRHOSIS OF LIVER I86.4 GASTRIC VARICES K74.69 OTHER CIRRHOSIS OF L IVER I86.4 GASTRIC VARICES COMPARISON: None. TECHNIQUE: CT scan of the abdomen performed with intravenous and with oral contrast using helical sc anning technique with dynamic intravenous contrast injection. Images reviewed with lung, soft tissue, and bone windows. Reconstructed coronal and sagittal MPR images reviewed. Delayed images for evaluat ion of the urinary system also acquired and evaluated. All images stored on PACS. All CT scanners at this facility use dose modulation, iterative reconstruc tion, and/or weight based dosing when appropriate to reduce radiation dose to as low as reasonably ac hievable (ALARA). [facility]: Dose Right [facility]: CareDose [facility]: Dose Right [facility]: Teradose 4D [facility]: [employer] CONTRAST TYPE AND DOSE: contrast/concentration: Isovue 350.00 mg/ml; Total Contrast Delivered: 88.0 ml; Total Saline Delivered: 70.0 ml RENAL FUNCTION: Creatinine 1.3 RADIATION DOSE: CT Rad equipment meets quality standard of care and radiation dose reduction techniq ues were employed. CTDIvol: 15.8 - 18.0 mGy. DLP: 1030 mGy-cm. . LIMITATIONS: None. FINDINGS: LOWER CHEST: No significant findings. No nodules or infiltrates. LIVER: Normal size. No masses. No dilated ducts. SPLEEN: Normal size. No focal lesions. PANCREAS: No masses. No significant calcifications. No adjacent inflammation or peripancreatic fluid collections. Pancreatic duct not dilated. GALLBLADDER: Surgically absent. ADRENAL GLANDS: No significant masses or asymmetry. RIGHT KIDNEY AND URETER: No solid masses. No significant calcifications. No hydronephrosis or hyd roureter. LEFT KIDNEY AND URETER: No solid masses. No significant calcifications. No hydronephrosis or hydr oureter. AORTA AND VESSELS: No aneurysm. No dissection. Renal arteries, SMA, celiac without stenosis. Gastric varices. RETROPERITONEUM: No retroperitoneal adenopathy, hemorrhage or masses. BOWEL AND PERITONEAL CAVITY: Right hemicolectomy. No bowel mass. No inflammatory changes. APPENDIX: Surgically absent. ABDOMINAL WALL: No masses. No hernias. BONES: Spondylosis. No osseous lesions. OTHER: No other significant finding. IMPRESSION: Gastric varices. No acute findings in the abdomen. TECHNICAL DOCUMENTATION: JOB ID: [id number] Quality ID # [id number]: Final reports with documentation of one or more dose reduction techniques (e.g., Au tomated exposure control, adjustment of the mA and/or kV according to patient size, use of iterative reconstruction technique) 2010 [employer]- All Rights Reserved Reading location - IP/workstation name: [email or web address]
[2018-07-07 14:23] LABS: ALANINE AMINOTRANSFERASE 45 U/L (9-52); ALBUMIN 3.2 g/dL (3.5-5.0); ALKALINE PHOSPHATASE 87 U/L (38-126); ASPARTATE AMINO TRANSFERASE 46 U/L (14-36); BILIRUBIN,DIRECT 0.5 mg/dL (0.0-0.4); BILIRUBIN,TOTAL 1.2 mg/dL (0.2-1.3); TOTAL PROTEIN 6.2 g/dL (6.3-8.2)
== END ==
LOC: RAD 13:21
PROVIDERS: ATTEND Internal Medicine Gastroenterology
DX: K74.69 Other cirrhosis of liver (principal); I86.4 Gastric varices
CPT/HCPCS: 36415; 74160; 80076; 82105; 82565

== ENCOUNTER → 2019-09-11 | Outpatient (CLI) | payer MEDICARE, OTHER ==
--- NOTE | 2019-09-11 13:30 | RADIOLOGY REPORT (SQ) ---
EXAM DESCRIPTION: CT ABDOMEN COMBO COMPLETED DATE/TIME: 09/11/2019 1:07 pm REASON FOR STUDY: CIRRHOSIS, NON-ALCOHOL (K74.69), GASTRIC VARICES (I86.4) K74.69 OTHER CIRRHOSIS O F LIVER I86.4 GASTRIC VARICES COMPARISON: 07/07/2018 TECHNIQUE: CT scan of the abdomen performed with and without intravenous contrast, and without oral contrast. Contrasted imaging performed using helical scanning technique with dynamic intravenous cont rast injection. Images reviewed with lung, soft tissue, and bone windows. Reconstructed coronal and s agittal MPR images reviewed. Delayed images for evaluation of the urinary system also acquired and ev aluated. All images stored on PACS. All CT scanners at this facility use dose modulation, iterative reconstruction, and/or weight based d osing when appropriate to reduce radiation dose to as low as reasonably achievable (ALARA). [facility]: Dose Right [facility]: CareDose [facility]: Dose Right [facility]: Teradose 4D [facility]: [employer] CONTRAST TYPE AND DOSE: contrast/concentration: Isovue 350.00 mg/ml; Total Contrast Delivered: 53.0 ml; Total Saline Delivered: 80.0 ml RENAL FUNCTION: Creatinine 1.1 RADIATION DOSE: CT Rad equipment meets quality standard of care and radiation dose reduction techniq ues were employed. CTDIvol: NaN - NaN mGy. DLP: 0 mGy-cm.. LIMITATIONS: None. FINDINGS: LOWER CHEST: Cardiomegaly. Coronary atherosclerosis. No acute findings. LIVER: Mild nodularity of the contour. No intrahepatic ductal dilation. No focal lesions. SPLEEN: Normal in size. PANCREAS: No masses. No significant calcifications. No adjacent inflammation or peripancreatic fluid collections. Pancreatic duct not dilated. GALLBLADDER: Surgically absent. ADRENAL GLANDS: No significant masses or asymmetry. RIGHT KIDNEY AND URETER: No solid masses. Small interpolar exophytic cyst. Diffuse cortical thinnin g. No significant calcifications. No hydronephrosis or hydroureter. LEFT KIDNEY AND URETER: No solid masses. Few cysts, largest measuring 5.3 cm. Diffuse cortical thin steve. No significant calcifications. No hydronephrosis or hydroureter. AORTA AND VESSELS: Scattered aortic vascular calcifications. No aneurysm. No high-grade stenosis of the celiac, SMA, ROSAS or renal arteries. There are multiple prominent upper abdominal and perigastri c portosystemic collaterals. RETROPERITONEUM: No retroperitoneal adenopathy or mass. No retroperitoneal hemorrhage. BOWEL AND PERITONEAL CAVITY: No evidence of intestinal obstruction. No focal bowel wall thickening. Evidence of prior right hemicolectomy with midline chain staple line. APPENDIX: Surgically absent. ABDOMINAL WALL: Small midline fat containing hernias, largest measuring 3.4 cm. No soft tissue mass. BONES: No acute bony abnormality. Multilevel thoracolumbar spondylosis and facet arthropathy. No el spicious osseous lesions. OTHER: No other significant finding. IMPRESSION: 1. No evidence of acute intra-abdominal/pelvic process. 2. Upper abdominal perigastric portosystemic collaterals, similar to prior. No focal liver lesions. 3. Additional chronic findings as above. TECHNICAL DOCUMENTATION: JOB ID: [id number] Quality ID # [id number]: Final reports with documentation of one or more dose reduction techniques (e.g., Au tomated exposure control, adjustment of the mA and/or kV according to patient size, use of iterative reconstruction technique) 2010 [employer]- All Rights Reserved Reading location - IP/workstation name: [email or web address]
== END ==
LOC: RAD 12:29
PROVIDERS: ATTEND Internal Medicine Gastroenterology
DX: K74.69 Other cirrhosis of liver (principal); I86.4 Gastric varices
CPT/HCPCS: 74170; 82565